=== PATIENT | female | born 1990 | race Two or more races ===

== ENCOUNTER 2023-10-01 17:34 | Emergency (ER) | payer SELFPAY ==
[~2023-10-01] VITALS: Ht 165.1 cm; Wt 95.5 kg
[2023-10-01 18:52] VITALS: BP 116/60; PULSE 108; RESP 18; TEMP 97.5; O2SAT 98
[2023-10-01] MEDS ORDERED: MUPI2OIN2 EX (19:09)
[2023-10-01] MEDS ORDERED: CLIN150C18 PO (19:09)
[2023-10-01] MEDS ORDERED: TETANUS-DIPTH-ACEL PERTUSSIS 0.5ML SYR Tdap IM ONE (20:00)
== END 2023-10-01 19:14 | disposition home or self-care (01) ==
LOC: ER 17:34
DX: O9A.212 Injury, poisoning and certain other consequences of external causes complicating pregnancy, second trimester (principal); S61.432A Puncture wound without foreign body of left hand, initial encounter; Z3A.23 23 weeks gestation of pregnancy; Z79.899 Other long term (current) drug therapy; W54.0XXA Bitten by dog, initial encounter; Y93.89 Activity, other specified; Y92.89 Other specified places as the place of occurrence of the external cause; Y99.8 Other external cause status

== ENCOUNTER 2023-10-03 12:37 | Observation (INO) | payer MEDICAID, OTHER ==
[~2023-10-03 12:37] MED LIST: CLIN150C18 PO; MUPI2OIN2 EX
[2023-10-03] MEDS ORDERED: PREN-96 PO (13:27)
== END 2023-10-03 13:42 | disposition home or self-care (01) ==
LOC: LDRP 12:37 → UNDOADMOB 12:37 → LDRP 12:47
PROVIDERS: ADMIT Obstetrics & Gynecology; ATTEND Obstetrics & Gynecology
DX: O99.612 Diseases of the digestive system complicating pregnancy, second trimester (principal); O21.2 Late vomiting of pregnancy; O99.322 Drug use complicating pregnancy, second trimester; K29.00 Acute gastritis without bleeding; R51.9 Headache, unspecified; F12.90 Cannabis use, unspecified, uncomplicated; Z87.891 Personal history of nicotine dependence; Z3A.25 25 weeks gestation of pregnancy
CPT/HCPCS: 59025; 81002; 94760; G0378